=== PATIENT | male | born 1930 | race Caucasian/White ===

== ENCOUNTER 2018-03-05 11:17 | Inpatient (IN) | payer MEDICARE, MEDICAID, OTHER ==
[~2018-03-05] VITALS: Ht 172.7 cm; Wt 78.0 kg
[2018-03-05] MEDS ORDERED: normal saline 1000ml 1,000 ML IV ONE ×2 (11:27→12:32)
[2018-03-05] MEDS ORDERED: morphine 4 MG/ML inj SYRINge IV PRN ×2 (11:30→14:00)
[2018-03-05 11:59] LABS: BASOPHILS % (AUTO) 0.1 % (0-1); EOSINOPHILS % (AUTO) 0 % (0-6); HEMATOCRIT 42.8 % (42.0-52.0); HEMOGLOBIN 14.4 g/dl (14.0-17.9); LYMPHOCYTES # (AUTO) 0.8 X10'3 (1.1-4.8); LYMPHOCYTES % (AUTO) 7.1 % (21-51); MEAN CORPUSCULAR HGB CONC 33.7 % (33.0-36.5); MEAN CORPUSCULAR VOLUME 83.1 FL (78-98); MEAN PLATELET VOLUME 7.2 FL (7.4-10.4); MONOCYTES # (AUTO) 0.3 X10'3 (0-0.9); MONOCYTES % (AUTO) 2.8 % (2-12); NEUTROPHILS # (AUTO) 10.5 X10'3 (1.8-7.7); PLATELET COUNT 305 X10'3 (140-440); RED BLOOD COUNT 5.15 X10'6 (4.70-6.10); RED CELL DISTRIBUTION WIDTH 15.2 % (11.5-14.5); WHITE BLOOD COUNT 11.7 X10'3 (4.5-11.0)
[2018-03-05 12:04] LABS: CLARITY,URINE CLOUDY (Clear); COLOR,URINE YELLOW (Yellow); GLUCOSE, URINE >=1000 mg/dl (Neg); KETONES,URINE TRACE mg/dl (Neg); LEUKOCYTE ESTERASE ,URINE SMALL (Neg); NITRITES, URINE POSITIVE (Neg); OCCULT BLOOD,URINE SMALL (Neg); PROTEIN,URINE TRACE mg/dl (Neg); UROBILINOGEN,URINE 0.2 E.U/dL (0.2-1.0)
[2018-03-05 12:05] LABS: UA COLLECTION TYPE STRAIGHT CATH
[2018-03-05 12:09] LABS: PARTIAL THROMBOPLASTIN TIME 26 SECONDS (22-32); PROTHROMBIN TIME 10.6 SECONDS (9.0-12.0)
[2018-03-05 12:10] LABS: BACTERIA,URINE 3+ /HPF (Neg); WBC,URINE TNTC /HPF (0-4)
[2018-03-05 12:11] LABS: MUCUS STRANDS FEW /LPF (Neg); SQUAMOUS EPITHELIAL CELL,UR FEW /LPF (FEW)
[2018-03-05 12:14] LABS: ALANINE AMINOTRANSFERASE 33 U/L (12-78); ALBUMIN 3.2 G/DL (3.4-5.0); ALBUMIN/GLOBULIN RATIO 0.8 (1.1-1.5); ALKALINE PHOSPHATASE 97 IU/L (46-116); ANION GAP 10 (8-16); ASPARTATE AMINO TRANSFERASE 12 U/L (10-37); BILIRUBIN,TOTAL 0.4 MG/DL (0.1-1.0); BLOOD UREA NITROGEN 22 MG/DL (7-18); BUN/CREATININE RATIO 12.6 (5.4-32.0); CALCIUM 8.9 MG/DL (8.5-10.1); CHLORIDE 101 MMOL/L (99-107); CREATININE 1.74 MG/DL (0.60-1.10); GLUCOSE 281 MG/DL (70-104); LIPASE 100 U/L (73-393); MAGNESIUM 1.9 MG/DL (1.5-2.4); POTASSIUM 4.4 MMOL/L (3.5-5.1); SODIUM 138 MMOL/L (135-145); TOTAL CARBON DIOXIDE 27.3 MMOL/L (24-32); TOTAL PROTEIN 7.3 G/DL (6.4-8.2); eGFR 37 ML/MIN
[2018-03-05] MEDS ORDERED: normal saline 1000ML IV soln IVB ONE ×2 (12:35→15:15)
[2018-03-05] MEDS ORDERED: CefTRIAXone 2gm/D5W 50ml 50 ML IV ONE (12:35)
[2018-03-05] MEDS ORDERED: piperacillin/tazo 3.375gm/50ml 50 ML IV ONE (13:10)
[2018-03-05] MEDS: normal saline 1000ml 1,000 ML IV SCH (13:57)
[2018-03-05] MEDS ORDERED: HYDROcodone/acetaminophen 5mg/325mg tablet PO PRN (14:00)
[2018-03-05] MEDS ORDERED: potassium Cl 40MEQ/NS 500ml 500 ML IV PRN ×2 (14:00)
[2018-03-05] MEDS ORDERED: magnesium 4gm in 100ml NS 100 ML IV PRN (14:00)
[2018-03-05] MEDS ORDERED: potassium Cl 20 mEq SR tablet PO PRN ×2 (14:00)
[2018-03-05] MEDS ORDERED: HYDROcodone/acetaminophen 10/325mg tab PO PRN (14:00)
[2018-03-05] MEDS ORDERED: magnesium 2GM in 50ml NS 50 ML IV PRN (14:00)
[2018-03-05] MEDS ORDERED: bisacodyl 10mg suppository rectal RC PRN (14:00)
[2018-03-05] MEDS ORDERED: magnesium hydroxide 30ml (MOM) UD suspension PO PRN (14:00)
[2018-03-05] MEDS ORDERED: acetaminophen 325mg tablet PO PRN (14:00)
[2018-03-05] MEDS ORDERED: mag hydrox/Alum hydrox/simeth 30ml oral suspension PO PRN (14:00)
[2018-03-05] MEDS ORDERED: magnesium Cl slow-release 64mg tablet PO PRN (14:00)
[2018-03-05] MEDS ORDERED: sincalide inj 1.6 MCG in normal saline 50ml IV soln 50 ML IV ONE (14:05)
[2018-03-05] MEDS ORDERED: MESSAGE TO PHARMACY PO ONE (14:05)
[2018-03-05] MEDS ORDERED: LORazepam 2 mg/ml vial IV PRN (14:05)
[2018-03-05] MEDS ORDERED: glucagon, human recombinant 1mg kit SUBCUT PRN (14:05)
[2018-03-05] MEDS ORDERED: dextrose 50%-water 50ml dispensing syringe IV PRN ×2 (14:05)
[2018-03-05] MEDS ORDERED: dextrose ORAL solution 15 GM/59 ML bottle PO PRN ×2 (14:05)
[2018-03-05] MEDS: metroNIDAZOLE-Flagyl 500mg/NS 100 ML IV SCH (17:47)
[2018-03-05 20:00] VITALS: BP 139/75
[2018-03-05] MEDS: heparin, porcine 5000 units/ml vial SQ SCH (20:00)
[2018-03-05] MEDS: docusate sod 100mg capsule PO SCH (20:00)
[2018-03-06] VITALS (18 sets, daily range): BP systolic 140–175; BP diastolic 67–95
[2018-03-06] MEDS: normal saline 1000ml 1,000 ML IV SCH ×3 (00:36→20:02)
[2018-03-06] MEDS: metroNIDAZOLE-Flagyl 500mg/NS 100 ML IV SCH ×4 (01:51→23:37)
[2018-03-06] MEDS: docusate sod 100mg capsule PO SCH ×2 (07:23→20:00)
[2018-03-06] MEDS: heparin, porcine 5000 units/ml vial SQ SCH ×3 (07:23→20:01)
[2018-03-06] MEDS: K and/or MAG REPLACEMENT MC SCH (08:00)
[2018-03-06] MEDS: CefTRIAXone/D5W-Rocephin 1gm 50 ML IV SCH (08:39)
[2018-03-06 09:44] LABS: BASOPHILS % (AUTO) 0.5 % (0-1); EOSINOPHILS # (AUTO) 0.5 X10'3 (0-0.9); EOSINOPHILS % (AUTO) 4.4 % (0-6); HEMATOCRIT 37.7 % (42.0-52.0); HEMOGLOBIN 12.8 g/dl (14.0-17.9); LYMPHOCYTES # (AUTO) 1.2 X10'3 (1.1-4.8); LYMPHOCYTES % (AUTO) 11.2 % (21-51); MEAN CORPUSCULAR HEMOGLOBIN 28.2 PG (27.0-31.0); MONOCYTES # (AUTO) 0.8 X10'3 (0-0.9); MONOCYTES % (AUTO) 7.5 % (2-12); NEUTROPHILS # (AUTO) 8.2 X10'3 (1.8-7.7); NEUTROPHILS % (AUTO) 76.4 % (42-75); PLATELET COUNT 283 X10'3 (140-440); RED BLOOD COUNT 4.54 X10'6 (4.70-6.10); RED CELL DISTRIBUTION WIDTH 15.4 % (11.5-14.5); WHITE BLOOD COUNT 10.8 X10'3 (4.5-11.0)
[2018-03-06 09:58] LABS: ALANINE AMINOTRANSFERASE 25 U/L (12-78); ALBUMIN 2.7 G/DL (3.4-5.0); ALBUMIN/GLOBULIN RATIO 0.8 (1.1-1.5); ALKALINE PHOSPHATASE 77 IU/L (46-116); ANION GAP 5 (8-16); ASPARTATE AMINO TRANSFERASE 13 U/L (10-37); BILIRUBIN,TOTAL 0.4 MG/DL (0.1-1.0); BLOOD UREA NITROGEN 18 MG/DL (7-18); BUN/CREATININE RATIO 12.6 (5.4-32.0); CALCIUM 8.4 MG/DL (8.5-10.1); CHLORIDE 105 MMOL/L (99-107); CREATININE 1.43 MG/DL (0.60-1.10); GLUCOSE 201 MG/DL (70-104); POTASSIUM 4.4 MMOL/L (3.5-5.1); SODIUM 139 MMOL/L (135-145); TOTAL CARBON DIOXIDE 28.8 MMOL/L (24-32); TOTAL PROTEIN 6.2 G/DL (6.4-8.2); eGFR 47 ML/MIN
[2018-03-06] MEDS ORDERED: ringers solution, lacted 1,000 ML IV ONE (14:58)
[2018-03-06] MEDS ORDERED: ringers solution, lacted 1,000 ML IV SCH (14:58)
[2018-03-06] MEDS ORDERED: ondansetron/PF 4mg/2ml inj IV PRN (15:00)
[2018-03-06] MEDS ORDERED: fentaNYL/PF 50MCG/1 ML 2ML syringe IV PRN ×2 (15:00)
[2018-03-06] MEDS ORDERED: morphine 4 MG/ML inj SYRINge IV PRN ×2 (15:00)
[2018-03-06] MEDS ORDERED: enalaprilat dihydrate 2.5mg/2ml vial IV PRN (15:00)
[2018-03-06] MEDS ORDERED: hydrALAZINE 20mg/ml inj. IV PRN (15:00)
[2018-03-06] MEDS ORDERED: LIDOcaine 1% 30ml preserv. free vial ONE (15:15)
[2018-03-06] MEDS ORDERED: ondansetron/PF 4mg/2ml inj ONE (15:58)
[2018-03-06] MEDS ORDERED: sevoflurane 250ml liquid IH ONE (15:58)
[2018-03-06] MEDS ORDERED: fentaNYL/PF 50MCG/1 ML 2ML syringe ONE (16:17)
[2018-03-06] MEDS ORDERED: rocuronium 10mg/ml inj IV ONE (16:18)
[2018-03-06] MEDS ORDERED: propofol inj 20 ML IV ONE (16:18)
[2018-03-06] MEDS ORDERED: BUPIVAcaine/PF 2.5 mg/ml (0.25%) 30ml vial ONE (16:22)
[2018-03-06] MEDS ORDERED: ePHEDrine 50MG/ML INJ. ONE (16:28)
[2018-03-06] MEDS ORDERED: ceFAZolin 1000mg inj ONE ×2 (16:33)
[2018-03-06] MEDS ORDERED: heparin 1,000unit/ml 10ml vial 0 ML ONE (16:33)
[2018-03-06] MEDS ORDERED: dexamethasone sod phosphate 4mg/ml inj. ONE (16:33)
[2018-03-06] MEDS ORDERED: labetalol 5mg/ml 20ml inj. IV ONE (16:48)
[2018-03-06] MEDS ORDERED: HYDROcodone/acetaminophen 5mg/325mg tablet PO PRN (17:45)
[2018-03-06] MEDS: morphine 4 MG/ML inj SYRINge IV PRN ×2 (20:00→23:51)
[2018-03-06] MEDS: lactobacillus rhamnosus 10,000 MMU CELLS/CAPSULE PO SCH (20:00)
[2018-03-06] MEDS: ondansetron/PF 4mg/2ml inj IV PRN (20:01)
[2018-03-07] VITALS: BP 141/80
[2018-03-07] MEDS: ondansetron/PF 4mg/2ml inj IV PRN ×3 (01:39→20:31)
[2018-03-07 04:10] VITALS: BP 108/64
[2018-03-07 05:26] LABS: BASOPHILS % (AUTO) 0 % (0-1); EOSINOPHILS # (AUTO) 0.2 X10'3 (0-0.9); EOSINOPHILS % (AUTO) 1.4 % (0-6); HEMATOCRIT 40.2 % (42.0-52.0); HEMOGLOBIN 13.5 g/dl (14.0-17.9); LYMPHOCYTES # (AUTO) 0.6 X10'3 (1.1-4.8); LYMPHOCYTES % (AUTO) 3.6 % (21-51); MEAN CORPUSCULAR HGB CONC 33.6 % (33.0-36.5); MEAN CORPUSCULAR VOLUME 83.4 FL (78-98); MEAN PLATELET VOLUME 7.5 FL (7.4-10.4); MONOCYTES # (AUTO) 0.7 X10'3 (0-0.9); MONOCYTES % (AUTO) 4.2 % (2-12); NEUTROPHILS # (AUTO) 15.3 X10'3 (1.8-7.7); NEUTROPHILS % (AUTO) 90.8 % (42-75); PLATELET COUNT 289 X10'3 (140-440); RED BLOOD COUNT 4.81 X10'6 (4.70-6.10); RED CELL DISTRIBUTION WIDTH 15.4 % (11.5-14.5); WHITE BLOOD COUNT 16.9 X10'3 (4.5-11.0)
[2018-03-07 05:47] LABS: ALANINE AMINOTRANSFERASE 47 U/L (12-78); ALBUMIN 2.9 G/DL (3.4-5.0); ALBUMIN/GLOBULIN RATIO 0.7 (1.1-1.5); ALKALINE PHOSPHATASE 81 IU/L (46-116); ANION GAP 16 (8-16); ASPARTATE AMINO TRANSFERASE 50 U/L (10-37); BILIRUBIN,TOTAL 0.4 MG/DL (0.1-1.0); BLOOD UREA NITROGEN 21 MG/DL (7-18); BUN/CREATININE RATIO 13.6 (5.4-32.0); CALCIUM 8.5 MG/DL (8.5-10.1); CHLORIDE 102 MMOL/L (99-107); CREATININE 1.54 MG/DL (0.60-1.10); GLUCOSE 295 MG/DL (70-104); MAGNESIUM 1.6 MG/DL (1.5-2.4); POTASSIUM 4.2 MMOL/L (3.5-5.1); SODIUM 138 MMOL/L (135-145); TOTAL CARBON DIOXIDE 20.3 MMOL/L (24-32); TOTAL PROTEIN 6.8 G/DL (6.4-8.2); eGFR 43 ML/MIN
[2018-03-07 07:00] VITALS: BP 197/101
[2018-03-07] MEDS: morphine 4 MG/ML inj SYRINge IV PRN ×3 (07:09→20:31)
[2018-03-07] MEDS: normal saline 1000ml 1,000 ML IV SCH ×2 (07:14→16:36)
[2018-03-07] MEDS: CefTRIAXone/D5W-Rocephin 1gm 50 ML IV SCH (07:15)
[2018-03-07] MEDS: K and/or MAG REPLACEMENT MC SCH (08:00)
[2018-03-07] MEDS: lactobacillus rhamnosus 10,000 MMU CELLS/CAPSULE PO SCH ×2 (08:00→20:00)
[2018-03-07] MEDS: docusate sod 100mg capsule PO SCH ×2 (08:00→20:00)
[2018-03-07] MEDS: metroNIDAZOLE-Flagyl 500mg/NS 100 ML IV SCH ×3 (08:13→23:52)
[2018-03-07] MEDS: heparin, porcine 5000 units/ml vial SQ SCH ×2 (08:13→20:28)
[2018-03-07] MEDS: insulin Lispro (HumaLOG) vial - multi-dose SQ SCH ×2 (08:17→13:28)
[2018-03-07] MEDS ORDERED: hydrALAZINE 20mg/ml inj. IV ONE (09:00)
[2018-03-07] MEDS: levoFLOXACIN-Levaquin 500mg/D5 100 ML IV SCH (09:39)
[2018-03-07 12:08] VITALS: BP 156/88
[2018-03-07] MEDS: pantoprazole 40 MG vial IV SCH (16:04)
[2018-03-07 18:00] VITALS: BP 123/70
[2018-03-08] VITALS: BP 140/80
[2018-03-08] MEDS: morphine 4 MG/ML inj SYRINge IV PRN ×3 (01:52→22:07)
[2018-03-08] MEDS: normal saline 1000ml 1,000 ML IV SCH ×3 (01:55→22:09)
[2018-03-08 05:52] LABS: BASOPHILS % (AUTO) 0.1 % (0-1); EOSINOPHILS # (AUTO) 0.1 X10'3 (0-0.9); EOSINOPHILS % (AUTO) 0.9 % (0-6); HEMATOCRIT 35.1 % (42.0-52.0); HEMOGLOBIN 11.8 g/dl (14.0-17.9); LYMPHOCYTES # (AUTO) 1.1 X10'3 (1.1-4.8); LYMPHOCYTES % (AUTO) 7.2 % (21-51); MEAN CORPUSCULAR HEMOGLOBIN 27.9 PG (27.0-31.0); MEAN CORPUSCULAR HGB CONC 33.6 % (33.0-36.5); MEAN CORPUSCULAR VOLUME 82.9 FL (78-98); MEAN PLATELET VOLUME 7.4 FL (7.4-10.4); MONOCYTES # (AUTO) 1.4 X10'3 (0-0.9); MONOCYTES % (AUTO) 9.1 % (2-12); NEUTROPHILS # (AUTO) 12.9 X10'3 (1.8-7.7); NEUTROPHILS % (AUTO) 82.7 % (42-75); PLATELET COUNT 286 X10'3 (140-440); RED BLOOD COUNT 4.23 X10'6 (4.70-6.10); RED CELL DISTRIBUTION WIDTH 15.5 % (11.5-14.5); WHITE BLOOD COUNT 15.6 X10'3 (4.5-11.0)
[2018-03-08 06:12] LABS: ALANINE AMINOTRANSFERASE 29 U/L (12-78); ALBUMIN 2.4 G/DL (3.4-5.0); ALBUMIN/GLOBULIN RATIO 0.7 (1.1-1.5); ALKALINE PHOSPHATASE 60 IU/L (46-116); ANION GAP 10 (8-16); ASPARTATE AMINO TRANSFERASE 20 U/L (10-37); BILIRUBIN,TOTAL 0.5 MG/DL (0.1-1.0); BLOOD UREA NITROGEN 24 MG/DL (7-18); CALCIUM 8.3 MG/DL (8.5-10.1); CHLORIDE 108 MMOL/L (99-107); GLUCOSE 184 MG/DL (70-104); MAGNESIUM 1.7 MG/DL (1.5-2.4); SODIUM 142 MMOL/L (135-145); TOTAL CARBON DIOXIDE 23.8 MMOL/L (24-32); TOTAL PROTEIN 5.8 G/DL (6.4-8.2); eGFR 41 ML/MIN
[2018-03-08 08:00] VITALS: BP 141/77
[2018-03-08] MEDS: lactobacillus rhamnosus 10,000 MMU CELLS/CAPSULE PO SCH ×2 (08:00→19:34)
[2018-03-08] MEDS: heparin, porcine 5000 units/ml vial SQ SCH ×2 (08:00→19:34)
[2018-03-08] MEDS: K and/or MAG REPLACEMENT MC SCH (08:00)
[2018-03-08] MEDS: docusate sod 100mg capsule PO SCH ×2 (08:00→19:34)
[2018-03-08] MEDS: levoFLOXACIN-Levaquin 500mg/D5 100 ML IV SCH (09:32)
[2018-03-08] MEDS: pantoprazole 40 MG vial IV SCH (09:32)
[2018-03-08] MEDS: insulin Lispro (HumaLOG) vial - multi-dose SQ SCH ×2 (10:34→13:39)
[2018-03-08 11:00] VITALS: BP 133/88
[2018-03-08] MEDS: metroNIDAZOLE-Flagyl 500mg/NS 100 ML IV SCH ×3 (11:19→23:21)
[2018-03-08 18:00] VITALS: BP 144/66
[2018-03-09] VITALS: BP 131/89
[2018-03-09 05:33] LABS: BASOPHILS % (AUTO) 0.1 % (0-1); EOSINOPHILS # (AUTO) 0.4 X10'3 (0-0.9); EOSINOPHILS % (AUTO) 3.8 % (0-6); HEMATOCRIT 33.8 % (42.0-52.0); HEMOGLOBIN 11.1 g/dl (14.0-17.9); LYMPHOCYTES % (AUTO) 8.7 % (21-51); MEAN CORPUSCULAR HEMOGLOBIN 27.6 PG (27.0-31.0); MEAN CORPUSCULAR HGB CONC 32.9 % (33.0-36.5); MEAN CORPUSCULAR VOLUME 83.8 FL (78-98); MEAN PLATELET VOLUME 7.4 FL (7.4-10.4); MONOCYTES # (AUTO) 1.1 X10'3 (0-0.9); MONOCYTES % (AUTO) 9.9 % (2-12); NEUTROPHILS # (AUTO) 8.8 X10'3 (1.8-7.7); NEUTROPHILS % (AUTO) 77.5 % (42-75); PLATELET COUNT 248 X10'3 (140-440); RED BLOOD COUNT 4.03 X10'6 (4.70-6.10); RED CELL DISTRIBUTION WIDTH 15.5 % (11.5-14.5); WHITE BLOOD COUNT 11.3 X10'3 (4.5-11.0)
[2018-03-09 06:00] LABS: ALANINE AMINOTRANSFERASE 20 U/L (12-78); ALBUMIN 2.2 G/DL (3.4-5.0); ALBUMIN/GLOBULIN RATIO 0.7 (1.1-1.5); ALKALINE PHOSPHATASE 60 IU/L (46-116); ANION GAP 11 (8-16); ASPARTATE AMINO TRANSFERASE 13 U/L (10-37); BILIRUBIN,TOTAL 0.4 MG/DL (0.1-1.0); BLOOD UREA NITROGEN 20 MG/DL (7-18); BUN/CREATININE RATIO 15.5 (5.4-32.0); CALCIUM 7.9 MG/DL (8.5-10.1); CHLORIDE 108 MMOL/L (99-107); CREATININE 1.29 MG/DL (0.60-1.10); GLUCOSE 152 MG/DL (70-104); MAGNESIUM 1.8 MG/DL (1.5-2.4); POTASSIUM 3.6 MMOL/L (3.5-5.1); SODIUM 140 MMOL/L (135-145); TOTAL CARBON DIOXIDE 21.4 MMOL/L (24-32); TOTAL PROTEIN 5.3 G/DL (6.4-8.2); eGFR 53 ML/MIN
[2018-03-09 07:30] VITALS: BP 86/46
[2018-03-09 07:34] VITALS: BP 151/83
[2018-03-09] MEDS: lactobacillus rhamnosus 10,000 MMU CELLS/CAPSULE PO SCH ×2 (08:00→20:00)
[2018-03-09] MEDS: docusate sod 100mg capsule PO SCH ×2 (08:00→20:00)
[2018-03-09] MEDS: K and/or MAG REPLACEMENT MC SCH (08:00)
[2018-03-09] MEDS: pantoprazole 40 MG vial IV SCH (09:23)
[2018-03-09] MEDS: normal saline 1000ml 1,000 ML IV SCH ×2 (09:23→21:44)
[2018-03-09] MEDS: metroNIDAZOLE-Flagyl 500mg/NS 100 ML IV SCH ×2 (09:23→15:48)
[2018-03-09] MEDS: heparin, porcine 5000 units/ml vial SQ SCH ×2 (09:24→19:23)
[2018-03-09] MEDS: insulin Lispro (HumaLOG) vial - multi-dose SQ SCH ×2 (10:28→15:07)
[2018-03-09 11:00] VITALS: BP 144/84
[2018-03-09] MEDS: levoFLOXACIN-Levaquin 500mg/D5 100 ML IV SCH (12:02)
[2018-03-09] MEDS: morphine 4 MG/ML inj SYRINge IV PRN (12:03)
[2018-03-09 20:00] VITALS: BP 163/99
[2018-03-10] VITALS: BP 158/96
[2018-03-10] MEDS ORDERED: metroNIDAZOLE 500mg tablet PO SCH
[2018-03-10] MEDS: metroNIDAZOLE-Flagyl 500mg/NS 100 ML IV SCH ×4 (00:06→23:50)
[2018-03-10] MEDS: morphine 4 MG/ML inj SYRINge IV PRN (02:54)
[2018-03-10] MEDS: normal saline 1000ml 1,000 ML IV SCH ×3 (04:36→20:54)
[2018-03-10 05:26] LABS: BASOPHILS % (AUTO) 0.2 % (0-1); EOSINOPHILS # (AUTO) 0.5 X10'3 (0-0.9); EOSINOPHILS % (AUTO) 4.2 % (0-6); HEMATOCRIT 35.3 % (42.0-52.0); HEMOGLOBIN 11.9 g/dl (14.0-17.9); LYMPHOCYTES # (AUTO) 1.1 X10'3 (1.1-4.8); LYMPHOCYTES % (AUTO) 8.6 % (21-51); MEAN CORPUSCULAR HEMOGLOBIN 27.8 PG (27.0-31.0); MEAN CORPUSCULAR HGB CONC 33.7 % (33.0-36.5); MEAN CORPUSCULAR VOLUME 82.5 FL (78-98); MEAN PLATELET VOLUME 7.3 FL (7.4-10.4); MONOCYTES # (AUTO) 1.1 X10'3 (0-0.9); MONOCYTES % (AUTO) 8.3 % (2-12); NEUTROPHILS % (AUTO) 78.7 % (42-75); PLATELET COUNT 279 X10'3 (140-440); RED BLOOD COUNT 4.28 X10'6 (4.70-6.10); RED CELL DISTRIBUTION WIDTH 15.3 % (11.5-14.5); WHITE BLOOD COUNT 12.8 X10'3 (4.5-11.0)
[2018-03-10 05:42] LABS: ALANINE AMINOTRANSFERASE 17 U/L (12-78); ALBUMIN 2.2 G/DL (3.4-5.0); ALBUMIN/GLOBULIN RATIO 0.7 (1.1-1.5); ALKALINE PHOSPHATASE 55 IU/L (46-116); ANION GAP 11 (8-16); ASPARTATE AMINO TRANSFERASE 12 U/L (10-37); BILIRUBIN,TOTAL 0.5 MG/DL (0.1-1.0); BLOOD UREA NITROGEN 15 MG/DL (7-18); BUN/CREATININE RATIO 12.1 (5.4-32.0); CALCIUM 7.8 MG/DL (8.5-10.1); CHLORIDE 108 MMOL/L (99-107); CREATININE 1.24 MG/DL (0.60-1.10); GLUCOSE 125 MG/DL (70-104); MAGNESIUM 1.7 MG/DL (1.5-2.4); POTASSIUM 3.5 MMOL/L (3.5-5.1); SODIUM 141 MMOL/L (135-145); TOTAL CARBON DIOXIDE 22.5 MMOL/L (24-32); TOTAL PROTEIN 5.3 G/DL (6.4-8.2); eGFR 55 ML/MIN
[2018-03-10 06:58] VITALS: BP 158/94
[2018-03-10] MEDS: pantoprazole 40mg Tablet.DR PO SCH ×2 (07:30→08:18)
[2018-03-10] MEDS: K and/or MAG REPLACEMENT MC SCH (08:00)
[2018-03-10] MEDS: docusate sodium 100mg/10ml UD cup PO SCH ×3 (08:00→20:52)
[2018-03-10] MEDS: lactobacillus rhamnosus 10,000 MMU CELLS/CAPSULE PO SCH ×2 (08:18→20:52)
[2018-03-10] MEDS: heparin, porcine 5000 units/ml vial SQ SCH ×2 (08:22→20:53)
[2018-03-10] MEDS: levoFLOXACIN-Levaquin 500mg/D5 100 ML IV SCH (09:28)
[2018-03-10] MEDS: pantoprazole 40 MG vial IV SCH (09:53)
[2018-03-10] MEDS ORDERED: levoFLOXACIN 500mg tablet PO SCH (11:00)
[2018-03-10 11:54] VITALS: BP 159/95
[2018-03-10] MEDS ORDERED: MAGN400O6 PO (14:19)
[2018-03-10] MEDS ORDERED: CYAN100T PO (14:19)
[2018-03-10] MEDS ORDERED: ALFU10TA PO (14:19)
[2018-03-10] MEDS ORDERED: GLIP5TAB26 PO (14:19)
[2018-03-10] MEDS ORDERED: QUET50TA22 PO (14:19)
[2018-03-10] MEDS ORDERED: ACET-2119 PO (14:19)
[2018-03-10] MEDS ORDERED: DOCU250C4 PO (14:19)
[2018-03-10] MEDS ORDERED: DEXT1DRO6 OP (14:19)
[2018-03-10] MEDS ORDERED: CHOL10002 PO (14:19)
[2018-03-10] MEDS ORDERED: FOLI1TAB16 PO (14:19)
[2018-03-10] MEDS ORDERED: FINA5TAB11 PO (14:19)
[2018-03-10] MEDS ORDERED: PANT-47 PO (14:19)
[2018-03-10] MEDS ORDERED: SERT25TA5 PO (14:19)
[2018-03-10] MEDS ORDERED: QUET25TA34 PO (14:19)
[2018-03-10] MEDS ORDERED: polyvinyl alcohol ophthalmic drops 15ml bottle EACHEYE PRN (14:45)
[2018-03-10] MEDS: QUEtiapine 25mg tablet PO SCH ×2 (15:11→20:52)
[2018-03-10] MEDS: insulin Lispro (HumaLOG) vial - multi-dose SQ SCH (19:16)
[2018-03-10 19:30] VITALS: BP 168/94
[2018-03-10] MEDS: tamsulosin 0.4mg capsule PO SCH (20:52)
[2018-03-11 00:30] VITALS: BP 144/65
[2018-03-11 07:00] VITALS: BP 163/68
[2018-03-11] MEDS: K and/or MAG REPLACEMENT MC SCH (07:26)
[2018-03-11] MEDS ORDERED: magnesium hydroxide 30ml (MOM) UD suspension PO ONE (07:30)
[2018-03-11] MEDS: normal saline 1000ml 1,000 ML IV SCH ×2 (07:34→23:42)
[2018-03-11] MEDS: sertraline 25mg tablet PO SCH (07:34)
[2018-03-11] MEDS: QUEtiapine 25mg tablet PO SCH ×3 (07:34→21:25)
[2018-03-11] MEDS: lactobacillus rhamnosus 10,000 MMU CELLS/CAPSULE PO SCH ×2 (07:34→21:25)
[2018-03-11] MEDS: folic acid 1mg tablet PO SCH (07:34)
[2018-03-11] MEDS: metroNIDAZOLE-Flagyl 500mg/NS 100 ML IV SCH ×3 (07:35→23:42)
[2018-03-11] MEDS: heparin, porcine 5000 units/ml vial SQ SCH ×2 (07:35→21:26)
[2018-03-11] MEDS: docusate sodium 100mg/10ml UD cup PO SCH ×3 (07:36→20:00)
[2018-03-11] MEDS: pantoprazole 40 MG vial IV SCH (07:36)
[2018-03-11] MEDS: finasteride 5mg tablet PO SCH (07:42)
[2018-03-11] MEDS: levoFLOXACIN-Levaquin 500mg/D5 100 ML IV SCH (08:39)
[2018-03-11] MEDS: insulin Lispro (HumaLOG) vial - multi-dose SQ SCH ×2 (09:04→15:56)
[2018-03-11 09:10] LABS: BASOPHILS % (AUTO) 0.2 % (0-1); EOSINOPHILS # (AUTO) 0.7 X10'3 (0-0.9); EOSINOPHILS % (AUTO) 6.3 % (0-6); HEMATOCRIT 34.7 % (42.0-52.0); HEMOGLOBIN 11.5 g/dl (14.0-17.9); LYMPHOCYTES # (AUTO) 1.1 X10'3 (1.1-4.8); LYMPHOCYTES % (AUTO) 9.4 % (21-51); MEAN CORPUSCULAR HEMOGLOBIN 27.7 PG (27.0-31.0); MEAN CORPUSCULAR HGB CONC 33.2 % (33.0-36.5); MEAN CORPUSCULAR VOLUME 83.5 FL (78-98); MEAN PLATELET VOLUME 7.1 FL (7.4-10.4); MONOCYTES # (AUTO) 1.1 X10'3 (0-0.9); MONOCYTES % (AUTO) 10.2 % (2-12); NEUTROPHILS # (AUTO) 8.3 X10'3 (1.8-7.7); NEUTROPHILS % (AUTO) 73.9 % (42-75); PLATELET COUNT 253 X10'3 (140-440); RED BLOOD COUNT 4.16 X10'6 (4.70-6.10); RED CELL DISTRIBUTION WIDTH 15.2 % (11.5-14.5); WHITE BLOOD COUNT 11.2 X10'3 (4.5-11.0)
[2018-03-11 09:20] LABS: ANION GAP 10 (8-16); BLOOD UREA NITROGEN 11 MG/DL (7-18); BUN/CREATININE RATIO 9.7 (5.4-32.0); CALCIUM 7.7 MG/DL (8.5-10.1); CHLORIDE 109 MMOL/L (99-107); CREATININE 1.13 MG/DL (0.60-1.10); GLUCOSE 148 MG/DL (70-104); POTASSIUM 3.3 MMOL/L (3.5-5.1); SODIUM 142 MMOL/L (135-145); TOTAL CARBON DIOXIDE 23.3 MMOL/L (24-32); eGFR 62 ML/MIN
[2018-03-11 09:32] LABS: BILIRUBIN,TOTAL 0.4 MG/DL (0.1-1.0)
[2018-03-11 11:08] VITALS: BP 108/69
[2018-03-11] MEDS ORDERED: potassium Cl 20 mEq SR tablet PO PRN ×2 (11:15)
[2018-03-11] MEDS ORDERED: magnesium Cl slow-release 64mg tablet PO PRN (11:15)
[2018-03-11] MEDS ORDERED: potassium Cl 40MEQ/NS 500ml 500 ML IV PRN ×2 (11:15)
[2018-03-11] MEDS ORDERED: magnesium 2GM in 50ml NS 50 ML IV PRN (11:15)
[2018-03-11] MEDS ORDERED: magnesium 4gm in 100ml NS 100 ML IV PRN (11:15)
[2018-03-11 19:30] VITALS: BP 136/80
[2018-03-11] MEDS: tamsulosin 0.4mg capsule PO SCH (21:25)
[2018-03-12 00:40] VITALS: BP 153/79
[2018-03-12 05:25] LABS: BASOPHILS % (AUTO) 0.4 % (0-1); EOSINOPHILS # (AUTO) 0.9 X10'3 (0-0.9); HEMATOCRIT 36.1 % (42.0-52.0); HEMOGLOBIN 12.1 g/dl (14.0-17.9); LYMPHOCYTES # (AUTO) 1.3 X10'3 (1.1-4.8); LYMPHOCYTES % (AUTO) 10.6 % (21-51); MEAN CORPUSCULAR HEMOGLOBIN 27.6 PG (27.0-31.0); MEAN CORPUSCULAR HGB CONC 33.6 % (33.0-36.5); MEAN PLATELET VOLUME 7.1 FL (7.4-10.4); MONOCYTES # (AUTO) 1.1 X10'3 (0-0.9); MONOCYTES % (AUTO) 8.7 % (2-12); NEUTROPHILS # (AUTO) 9.1 X10'3 (1.8-7.7); NEUTROPHILS % (AUTO) 73.3 % (42-75); PLATELET COUNT 267 X10'3 (140-440); RED CELL DISTRIBUTION WIDTH 15.3 % (11.5-14.5); WHITE BLOOD COUNT 12.4 X10'3 (4.5-11.0)
[2018-03-12 05:34] LABS: ALBUMIN 2.1 G/DL (3.4-5.0); ANION GAP 10 (8-16); BLOOD UREA NITROGEN 11 MG/DL (7-18); BUN/CREATININE RATIO 10.1 (5.4-32.0); CALCIUM 8.2 MG/DL (8.5-10.1); CHLORIDE 109 MMOL/L (99-107); CREATININE 1.09 MG/DL (0.60-1.10); GLUCOSE 125 MG/DL (70-104); MAGNESIUM 1.7 MG/DL (1.5-2.4); POTASSIUM 3.5 MMOL/L (3.5-5.1); SODIUM 143 MMOL/L (135-145); TOTAL CARBON DIOXIDE 24.4 MMOL/L (24-32); eGFR 64 ML/MIN
[2018-03-12] MEDS: normal saline 1000ml 1,000 ML IV SCH (06:36)
[2018-03-12 06:44] VITALS: BP 161/93
[2018-03-12] MEDS: metroNIDAZOLE-Flagyl 500mg/NS 100 ML IV SCH (07:39)
[2018-03-12] MEDS: pantoprazole 40 MG vial IV SCH (07:39)
[2018-03-12] MEDS: K and/or MAG REPLACEMENT MC SCH (08:00)
[2018-03-12] MEDS: QUEtiapine 25mg tablet PO SCH ×2 (09:08→13:12)
[2018-03-12] MEDS: folic acid 1mg tablet PO SCH (09:08)
[2018-03-12] MEDS: sertraline 25mg tablet PO SCH (09:08)
[2018-03-12] MEDS: lactobacillus rhamnosus 10,000 MMU CELLS/CAPSULE PO SCH (09:08)
[2018-03-12] MEDS: finasteride 5mg tablet PO SCH (09:08)
[2018-03-12] MEDS: levoFLOXACIN-Levaquin 500mg/D5 100 ML IV SCH (09:08)
[2018-03-12] MEDS: heparin, porcine 5000 units/ml vial SQ SCH (09:09)
[2018-03-12] MEDS: docusate sodium 100mg/10ml UD cup PO SCH (09:09)
[2018-03-12] MEDS: insulin Lispro (HumaLOG) vial - multi-dose SQ SCH (10:05)
[2018-03-12 11:05] VITALS: BP 147/91
== END 2018-03-12 14:15 | DRG 418 ==
LOC: ER 11:18 → ED HOLD 13:19 → EDBEDREQ 19:06 → SUR 3N 19:38
PROVIDERS: ADMIT Internal Medicine; ATTEND Internal Medicine
PROC: CF141ZZ Planar Nuclear Medicine Imaging of Gallbladder using Technetium 99m (Tc-99m) (ICD-10-PCS; 2018-03-05)
PROC: 0FT44ZZ Resection of Gallbladder, Percutaneous Endoscopic Approach (ICD-10-PCS; principal; 2018-03-06 16:03)
DX: K80.00 Calculus of gallbladder with acute cholecystitis without obstruction (principal); N39.0 Urinary tract infection, site not specified; N17.9 Acute kidney failure, unspecified; E11.22 Type 2 diabetes mellitus with diabetic chronic kidney disease; E86.0 Dehydration; N18.9 Chronic kidney disease, unspecified; Z66 Do not resuscitate; F32.9 Major depressive disorder, single episode, unspecified; B96.20 Unspecified Escherichia coli [E. coli] as the cause of diseases classified elsewhere; F03.90 Unspecified dementia, unspecified severity, without behavioral disturbance, psychotic disturbance, mood disturbance, and anxiety; I12.9 Hypertensive chronic kidney disease with stage 1 through stage 4 chronic kidney disease, or unspecified chronic kidney disease; N40.0 Benign prostatic hyperplasia without lower urinary tract symptoms; Z86.73 Personal history of transient ischemic attack (TIA), and cerebral infarction without residual deficits; Z91.013 Allergy to seafood; Z99.3 Dependence on wheelchair; Z90.49 Acquired absence of other specified parts of digestive tract; Z79.899 Other long term (current) drug therapy
CPT/HCPCS: 36415; 71045; 74018; 74176; 76700; 78226; 80048; 80053; 81001; 82247; 82948; 83036; 83605; 83690; 83735; 84484; 85025; 85610; 85730; 86885; 86900; 86901; 87040; 87077; 87088; 87186; 92616; 93005; 93971; 96361; 96374; 99291; A4357; A6223; A6251; A6266; A6449; A7000; A9537; C9113; J0360; J0690; J0696; J1100; J1644; J1956; J2270; J2405; J2543; J2704; J2805; J3010; J3480; J3490; J7030; J7040; J7120

== ENCOUNTER 2018-03-14 17:00 | Inpatient (IN) | payer MEDICARE, MEDICAID, OTHER ==
[~2018-03-14] VITALS: Ht 182.9 cm; Wt 100.0 kg
[~2018-03-14 17:00] MED LIST: ACET-2119 PO; ALFU10TA PO; CHOL10002 PO; CYAN100T PO; DEXT1DRO6 OP; DOCU250C4 PO; FINA5TAB11 PO; FOLI1TAB16 PO; GLIP5TAB26 PO; MAGN400O6 PO; PANT-47 PO; QUET25TA34 PO; QUET50TA22 PO; SERT25TA5 PO
[2018-03-14 17:54] LABS: BASOPHILS # (AUTO) 0.1 X10'3 (0-0.2); BASOPHILS % (AUTO) 0.4 % (0-1); EOSINOPHILS # (AUTO) 0.6 X10'3 (0-0.9); EOSINOPHILS % (AUTO) 4.4 % (0-6); HEMATOCRIT 35.1 % (42.0-52.0); HEMOGLOBIN 11.6 g/dl (14.0-17.9); LYMPHOCYTES # (AUTO) 1.3 X10'3 (1.1-4.8); LYMPHOCYTES % (AUTO) 9.7 % (21-51); MEAN CORPUSCULAR HEMOGLOBIN 27.5 PG (27.0-31.0); MEAN CORPUSCULAR HGB CONC 33.2 % (33.0-36.5); MEAN CORPUSCULAR VOLUME 82.9 FL (78-98); MEAN PLATELET VOLUME 7.1 FL (7.4-10.4); MONOCYTES # (AUTO) 1.4 X10'3 (0-0.9); MONOCYTES % (AUTO) 10.1 % (2-12); NEUTROPHILS # (AUTO) 10.2 X10'3 (1.8-7.7); NEUTROPHILS % (AUTO) 75.4 % (42-75); PLATELET COUNT 292 X10'3 (140-440); RED BLOOD COUNT 4.24 X10'6 (4.70-6.10); RED CELL DISTRIBUTION WIDTH 15.9 % (11.5-14.5); WHITE BLOOD COUNT 13.6 X10'3 (4.5-11.0)
[2018-03-14 18:02] LABS: INR 1.2 INR; PROTHROMBIN TIME 12.1 SECONDS (9.0-12.0)
[2018-03-14 18:11] LABS: ALANINE AMINOTRANSFERASE 12 U/L (12-78); ALBUMIN 2.1 G/DL (3.4-5.0); ALBUMIN/GLOBULIN RATIO 0.6 (1.1-1.5); ALKALINE PHOSPHATASE 59 IU/L (46-116); ANION GAP 6 (8-16); ASPARTATE AMINO TRANSFERASE 18 U/L (10-37); BILIRUBIN,TOTAL 0.2 MG/DL (0.1-1.0); BLOOD UREA NITROGEN 8 MG/DL (7-18); BUN/CREATININE RATIO 6.3 (5.4-32.0); CALCIUM 8.2 MG/DL (8.5-10.1); CHLORIDE 109 MMOL/L (99-107); CREATININE 1.27 MG/DL (0.60-1.10); GLUCOSE 172 MG/DL (70-104); POTASSIUM 3.2 MMOL/L (3.5-5.1); SODIUM 145 MMOL/L (135-145); TOTAL CARBON DIOXIDE 29.6 MMOL/L (24-32); TOTAL PROTEIN 5.5 G/DL (6.4-8.2); eGFR 54 ML/MIN
[2018-03-14 19:58] LABS: CLARITY,URINE Cloudy (Clear); COLOR,URINE Yellow (Yellow); GLUCOSE, URINE 250 mg/dl (Neg); KETONES,URINE Trace mg/dl (Neg); LEUKOCYTE ESTERASE ,URINE Negative (Neg); NITRITES, URINE Negative (Neg); OCCULT BLOOD,URINE Moderate (Neg); PROTEIN,URINE 30 mg/dl (Neg)
[2018-03-14 20:11] LABS: UA COLLECTION TYPE FOLEY CATH
[2018-03-14 20:12] LABS: WBC,URINE NONE SEEN /HPF (0-4)
[2018-03-14 20:13] LABS: BACTERIA,URINE FEW /HPF (Neg); CAL OXALATE CRYSTALS 4+ /HPF (NEGATIVE); RBC,URINE 0-2 /HPF (0-2); SQUAMOUS EPITHELIAL CELL,UR FEW /LPF (FEW)
[2018-03-14] MEDS ORDERED: magnesium 2GM in 50ml NS 50 ML IV PRN (22:35)
[2018-03-14] MEDS ORDERED: mag hydrox/Alum hydrox/simeth 30ml oral suspension PO PRN (22:35)
[2018-03-14] MEDS ORDERED: magnesium hydroxide 30ml (MOM) UD suspension PO PRN (22:35)
[2018-03-14] MEDS ORDERED: acetaminophen 325mg tablet PO PRN (22:35)
[2018-03-14] MEDS ORDERED: magnesium 4gm in 100ml NS 100 ML IV PRN (22:35)
[2018-03-14] MEDS ORDERED: magnesium Cl slow-release 64mg tablet PO PRN (22:35)
[2018-03-14] MEDS: K and/or MAG REPLACEMENT MC SCH (22:35)
[2018-03-14] MEDS ORDERED: potassium Cl 20 mEq SR tablet PO PRN ×2 (22:35)
[2018-03-14] MEDS ORDERED: potassium Cl 40MEQ/NS 500ml 500 ML IV PRN ×2 (22:35)
[2018-03-14] MEDS ORDERED: normal saline 500ml IV soln 500 ML IV ONE (22:35)
[2018-03-14] MEDS ORDERED: HYDROmorphone inj. 0.5 MG/0.5 ML DISP.SYRIN IV PRN ×2 (22:35)
[2018-03-14] MEDS ORDERED: acetaminophen 650mg rectal suppository RC PRN (22:35)
[2018-03-14] MEDS ORDERED: ondansetron/PF 4mg/2ml inj IV PRN (22:35)
[2018-03-14] MEDS: normal saline 1000ml 1,000 ML IV SCH ×2 (23:04→23:06)
[2018-03-15 00:30] VITALS: BP 152/85
[2018-03-15] MEDS ORDERED: LORazepam 2 mg/ml vial IV PRN (00:30)
[2018-03-15] MEDS: piperacillin/tazo 3.375gm/50ml 50 ML IV SCH ×3 (00:40→16:21)
[2018-03-15] MEDS ORDERED: potassium Cl 40MEQ/NS 500ml 500 ML IV ONE (02:06)
[2018-03-15 07:00] VITALS: BP 141/66
[2018-03-15] MEDS ORDERED: HYDROmorphone 1 mg/ml syringe IV PRN ×2 (07:10)
[2018-03-15] MEDS: normal saline 1000ml 1,000 ML IV SCH ×2 (07:50→20:52)
[2018-03-15] MEDS: K and/or MAG REPLACEMENT MC SCH (08:00)
[2018-03-15 09:35] LABS: BASOPHILS # (AUTO) 0.1 X10'3 (0-0.2); BASOPHILS % (AUTO) 0.7 % (0-1); EOSINOPHILS # (AUTO) 0.6 X10'3 (0-0.9); EOSINOPHILS % (AUTO) 4.3 % (0-6); HEMATOCRIT 33.4 % (42.0-52.0); HEMOGLOBIN 11.2 g/dl (14.0-17.9); LYMPHOCYTES # (AUTO) 1.1 X10'3 (1.1-4.8); LYMPHOCYTES % (AUTO) 8.9 % (21-51); MEAN CORPUSCULAR HEMOGLOBIN 27.8 PG (27.0-31.0); MEAN CORPUSCULAR HGB CONC 33.5 % (33.0-36.5); MEAN CORPUSCULAR VOLUME 82.9 FL (78-98); MONOCYTES % (AUTO) 7.9 % (2-12); NEUTROPHILS % (AUTO) 78.2 % (42-75); PLATELET COUNT 320 X10'3 (140-440); RED BLOOD COUNT 4.03 X10'6 (4.70-6.10); RED CELL DISTRIBUTION WIDTH 15.7 % (11.5-14.5); WHITE BLOOD COUNT 12.8 X10'3 (4.5-11.0)
[2018-03-15 09:49] LABS: ALANINE AMINOTRANSFERASE 15 U/L (12-78); ALBUMIN 1.5 G/DL (3.4-5.0); ALBUMIN/GLOBULIN RATIO 0.4 (1.1-1.5); ALKALINE PHOSPHATASE 58 IU/L (46-116); ANION GAP 7 (8-16); ASPARTATE AMINO TRANSFERASE 24 U/L (10-37); BILIRUBIN,TOTAL 0.3 MG/DL (0.1-1.0); BLOOD UREA NITROGEN 7 MG/DL (7-18); CALCIUM 6.7 MG/DL (8.5-10.1); CHLORIDE 108 MMOL/L (99-107); CREATININE 1.17 MG/DL (0.60-1.10); GLUCOSE 151 MG/DL (70-104); MAGNESIUM 1.8 MG/DL (1.5-2.4); PHOSPHORUS 2.9 MG/DL (2.3-4.5); POTASSIUM 3.6 MMOL/L (3.5-5.1); SODIUM 142 MMOL/L (135-145); TOTAL PROTEIN 5.2 G/DL (6.4-8.2); eGFR 59 ML/MIN
[2018-03-15 19:16] VITALS: BP 142/87
[2018-03-16] VITALS: BP 136/75
[2018-03-16] MEDS: piperacillin/tazo 3.375gm/50ml 50 ML IV SCH ×2 (00:12→08:01)
[2018-03-16 04:13] LABS: BASOPHILS # (AUTO) 0.1 X10'3 (0-0.2); BASOPHILS % (AUTO) 0.5 % (0-1); EOSINOPHILS # (AUTO) 0.6 X10'3 (0-0.9); EOSINOPHILS % (AUTO) 4.7 % (0-6); HEMATOCRIT 33.9 % (42.0-52.0); HEMOGLOBIN 11.2 g/dl (14.0-17.9); LYMPHOCYTES # (AUTO) 1.1 X10'3 (1.1-4.8); MEAN CORPUSCULAR HEMOGLOBIN 27.5 PG (27.0-31.0); MEAN CORPUSCULAR VOLUME 83.3 FL (78-98); MEAN PLATELET VOLUME 6.8 FL (7.4-10.4); MONOCYTES # (AUTO) 1.1 X10'3 (0-0.9); MONOCYTES % (AUTO) 8.8 % (2-12); NEUTROPHILS # (AUTO) 9.4 X10'3 (1.8-7.7); PLATELET COUNT 337 X10'3 (140-440); RED BLOOD COUNT 4.07 X10'6 (4.70-6.10); RED CELL DISTRIBUTION WIDTH 16.2 % (11.5-14.5); WHITE BLOOD COUNT 12.2 X10'3 (4.5-11.0)
[2018-03-16 04:47] LABS: ALANINE AMINOTRANSFERASE 18 U/L (12-78); ALBUMIN/GLOBULIN RATIO 0.6 (1.1-1.5); ALKALINE PHOSPHATASE 73 IU/L (46-116); ANION GAP 6 (8-16); ASPARTATE AMINO TRANSFERASE 35 U/L (10-37); BILIRUBIN,TOTAL 0.5 MG/DL (0.1-1.0); BLOOD UREA NITROGEN 8 MG/DL (7-18); BUN/CREATININE RATIO 6.6 (5.4-32.0); CALCIUM 8.3 MG/DL (8.5-10.1); CHLORIDE 108 MMOL/L (99-107); CREATININE 1.21 MG/DL (0.60-1.10); GLUCOSE 142 MG/DL (70-104); MAGNESIUM 1.7 MG/DL (1.5-2.4); PHOSPHORUS 3.3 MG/DL (2.3-4.5); POTASSIUM 3.7 MMOL/L (3.5-5.1); SODIUM 143 MMOL/L (135-145); TOTAL CARBON DIOXIDE 28.6 MMOL/L (24-32); TOTAL PROTEIN 5.3 G/DL (6.4-8.2); eGFR 57 ML/MIN
[2018-03-16 07:00] VITALS: BP 140/70
[2018-03-16] MEDS: K and/or MAG REPLACEMENT MC SCH ×2 (07:17→10:20)
[2018-03-16] MEDS: normal saline 1000ml 1,000 ML IV SCH ×2 (08:03→17:27)
[2018-03-16] MEDS ORDERED: magnesium hydroxide 30ml (MOM) UD suspension PO PRN (11:35)
[2018-03-16] MEDS ORDERED: polyvinyl alcohol ophthalmic drops 15ml bottle EACHEYE PRN (11:35)
[2018-03-16] MEDS ORDERED: docusate sod 250mg capsule PO PRN (11:35)
[2018-03-16] MEDS ORDERED: glucagon, human recombinant 1mg kit SUBCUT PRN (11:45)
[2018-03-16] MEDS ORDERED: MESSAGE TO PHARMACY PO ONE (11:45)
[2018-03-16] MEDS ORDERED: insulin Lispro (HumaLOG) vial - multi-dose SQ SCH (11:45)
[2018-03-16] MEDS ORDERED: dextrose 50%-water 50ml dispensing syringe IV PRN ×2 (11:45)
[2018-03-16] MEDS ORDERED: dextrose ORAL solution 15 GM/59 ML bottle PO PRN ×2 (11:45)
[2018-03-16 11:55] VITALS: BP 109/79
[2018-03-16] MEDS: QUEtiapine 25mg tablet PO SCH ×2 (12:29→20:06)
[2018-03-16] MEDS: sertraline 25mg tablet PO SCH (12:29)
[2018-03-16 20:00] VITALS: BP 152/78
[2018-03-16] MEDS: heparin, porcine 5000 units/ml vial SQ SCH (20:08)
[2018-03-16] MEDS: pantoprazole 40mg Tablet.DR PO SCH (20:08)
[2018-03-16] MEDS ORDERED: tamsulosin 0.4mg capsule PO SCH (21:00)
[2018-03-16] MEDS ORDERED: insulin glargine (Lantus) pen - multi-dose SQ SCH (21:00)
[2018-03-17] VITALS: BP 132/61
[2018-03-17] MEDS: normal saline 1000ml 1,000 ML IV SCH (05:09)
[2018-03-17 05:36] LABS: BASOPHILS % (AUTO) 0.3 % (0-1); EOSINOPHILS # (AUTO) 0.4 X10'3 (0-0.9); EOSINOPHILS % (AUTO) 3.9 % (0-6); LYMPHOCYTES # (AUTO) 1.2 X10'3 (1.1-4.8); LYMPHOCYTES % (AUTO) 10.8 % (21-51); MEAN CORPUSCULAR HEMOGLOBIN 27.9 PG (27.0-31.0); MEAN CORPUSCULAR HGB CONC 33.4 % (33.0-36.5); MEAN CORPUSCULAR VOLUME 83.4 FL (78-98); MEAN PLATELET VOLUME 6.9 FL (7.4-10.4); NEUTROPHILS # (AUTO) 8.6 X10'3 (1.8-7.7); PLATELET COUNT 361 X10'3 (140-440); RED BLOOD COUNT 4.32 X10'6 (4.70-6.10); RED CELL DISTRIBUTION WIDTH 15.9 % (11.5-14.5); WHITE BLOOD COUNT 11.4 X10'3 (4.5-11.0)
[2018-03-17 06:04] LABS: ALANINE AMINOTRANSFERASE 26 U/L (12-78); ALBUMIN 2.1 G/DL (3.4-5.0); ALBUMIN/GLOBULIN RATIO 0.6 (1.1-1.5); ALKALINE PHOSPHATASE 79 IU/L (46-116); ANION GAP 8 (8-16); ASPARTATE AMINO TRANSFERASE 32 U/L (10-37); BILIRUBIN,TOTAL 0.4 MG/DL (0.1-1.0); BLOOD UREA NITROGEN 8 MG/DL (7-18); BUN/CREATININE RATIO 7.5 (5.4-32.0); CALCIUM 8.2 MG/DL (8.5-10.1); CHLORIDE 106 MMOL/L (99-107); CREATININE 1.07 MG/DL (0.60-1.10); GLUCOSE 117 MG/DL (70-104); MAGNESIUM 1.7 MG/DL (1.5-2.4); SODIUM 142 MMOL/L (135-145); TOTAL CARBON DIOXIDE 27.7 MMOL/L (24-32); TOTAL PROTEIN 5.6 G/DL (6.4-8.2); eGFR 66 ML/MIN
[2018-03-17 07:05] VITALS: BP 124/77
[2018-03-17] MEDS: QUEtiapine 25mg tablet PO SCH ×2 (07:54→07:55)
[2018-03-17] MEDS: pantoprazole 40mg Tablet.DR PO SCH (07:55)
[2018-03-17] MEDS: sertraline 25mg tablet PO SCH (07:55)
[2018-03-17] MEDS: heparin, porcine 5000 units/ml vial SQ SCH (07:55)
[2018-03-17] MEDS ORDERED: finasteride 5mg tablet PO SCH (08:00)
[2018-03-17] MEDS ORDERED: folic acid 1mg tablet PO SCH (08:00)
[2018-03-17 11:23] VITALS: BP 134/84
== END 2018-03-17 15:43 | DRG 682 ==
LOC: ER 17:01 → ED HOLD 22:33 → SUR 3N 23:50
PROVIDERS: ADMIT Family Medicine; ATTEND Family Medicine
PROC: 0D9670Z Drainage of Stomach with Drainage Device, Via Natural or Artificial Opening (ICD-10-PCS; principal; 2018-03-14)
DX: N17.9 Acute kidney failure, unspecified (principal); E43 Unspecified severe protein-calorie malnutrition; K56.7 Ileus, unspecified; E11.22 Type 2 diabetes mellitus with diabetic chronic kidney disease; D64.9 Anemia, unspecified; G30.9 Alzheimer's disease, unspecified; F02.80 Dementia in other diseases classified elsewhere, unspecified severity, without behavioral disturbance, psychotic disturbance, mood disturbance, and anxiety; D72.829 Elevated white blood cell count, unspecified; E87.6 Hypokalemia; I10 Essential (primary) hypertension; Z66 Do not resuscitate; I25.10 Atherosclerotic heart disease of native coronary artery without angina pectoris; F32.9 Major depressive disorder, single episode, unspecified; K21.9 Gastro-esophageal reflux disease without esophagitis; N40.0 Benign prostatic hyperplasia without lower urinary tract symptoms; Z86.73 Personal history of transient ischemic attack (TIA), and cerebral infarction without residual deficits; Z91.013 Allergy to seafood; Z90.49 Acquired absence of other specified parts of digestive tract; Z68.29 Body mass index [BMI] 29.0-29.9, adult; Y92.89 Other specified places as the place of occurrence of the external cause; Z79.899 Other long term (current) drug therapy; N18.9 Chronic kidney disease, unspecified
CPT/HCPCS: 36415; 74176; 80053; 81001; 82948; 83735; 84100; 85025; 85610; 87070; 93005; A6258; J1170; J1644; J1815; J2060; J2543; J3480; J7030

== ENCOUNTER 2018-07-16 03:34 | Emergency (ER) | payer MEDICARE, MEDICAID, OTHER ==
[~2018-07-16] VITALS: Ht 167.6 cm; Wt 80.0 kg
[2018-07-16] MEDS ORDERED: ondansetron/PF 4mg/2ml inj IV ONE (03:45)
[2018-07-16] MEDS ORDERED: normal saline 1000ML IV soln IVB ONE (03:45)
[2018-07-16] MEDS ORDERED: morphine 4 MG/ML inj SYRINge IV PRN (03:45)
[2018-07-16 03:58] LABS: BASOPHILS % (AUTO) 0.1 % (0-1); EOSINOPHILS # (AUTO) 0.7 X10'3 (0-0.9); EOSINOPHILS % (AUTO) 5.8 % (0-6); HEMATOCRIT 39.3 % (42.0-52.0); LYMPHOCYTES # (AUTO) 1.1 X10'3 (1.1-4.8); LYMPHOCYTES % (AUTO) 8.9 % (21-51); MEAN CORPUSCULAR HEMOGLOBIN 27.2 PG (27.0-31.0); MEAN CORPUSCULAR VOLUME 82.6 FL (78-98); MEAN PLATELET VOLUME 6.9 FL (7.4-10.4); MONOCYTES # (AUTO) 0.9 X10'3 (0-0.9); MONOCYTES % (AUTO) 7.7 % (2-12); NEUTROPHILS # (AUTO) 9.3 X10'3 (1.8-7.7); NEUTROPHILS % (AUTO) 77.5 % (42-75); PLATELET COUNT 372 X10'3 (140-440); RED BLOOD COUNT 4.76 X10'6 (4.70-6.10); RED CELL DISTRIBUTION WIDTH 14.9 % (11.5-14.5); WHITE BLOOD COUNT 12.1 X10'3 (4.5-11.0)
[2018-07-16 04:00] LABS: CLARITY,URINE SLIGHTLY CLOUDY (Clear); COLOR,URINE YELLOW (Yellow); GLUCOSE, URINE NEGATIVE (Neg); KETONES,URINE NEGATIVE (Neg); LEUKOCYTE ESTERASE ,URINE LARGE (Neg); NITRITES, URINE POSITIVE (Neg); OCCULT BLOOD,URINE SMALL (Neg); PH,URINE 6.5 (4.8-8.0); PROTEIN,URINE TRACE mg/dl (Neg); UROBILINOGEN,URINE 0.2 E.U/dL (0.2-1.0)
[2018-07-16 04:01] LABS: UA COLLECTION TYPE FOLEY CATH
[2018-07-16 04:07] LABS: BACTERIA,URINE 3+ /HPF (Neg); SQUAMOUS EPITHELIAL CELL,UR NONE SEEN /LPF (FEW); WBC,URINE TNTC /HPF (0-4)
[2018-07-16] MEDS ORDERED: SIME80TA61 PO (04:07)
[2018-07-16 04:14] LABS: ALANINE AMINOTRANSFERASE 129 U/L (12-78); ALBUMIN 3.1 G/DL (3.4-5.0); ALBUMIN/GLOBULIN RATIO 0.8 (1.1-1.5); ALKALINE PHOSPHATASE 171 IU/L (46-116); ANION GAP 8 (8-16); ASPARTATE AMINO TRANSFERASE 19 U/L (10-37); BILIRUBIN,TOTAL 0.4 MG/DL (0.1-1.0); BLOOD UREA NITROGEN 23 MG/DL (7-18); BUN/CREATININE RATIO 14.5 (5.4-32.0); CALCIUM 9.6 MG/DL (8.5-10.1); CHLORIDE 100 MMOL/L (99-107); CREATININE 1.59 MG/DL (0.60-1.10); GLUCOSE 222 MG/DL (70-104); LIPASE 119 U/L (73-393); POTASSIUM 4.3 MMOL/L (3.5-5.1); SODIUM 138 MMOL/L (135-145); TOTAL CARBON DIOXIDE 29.6 MMOL/L (24-32); TOTAL PROTEIN 7.1 G/DL (6.4-8.2); eGFR 41 ML/MIN
[2018-07-16] MEDS ORDERED: CefTRIAXone 2gm/D5W 50ml 50 ML IV ONE (04:30)
[2018-07-16 09:39] VITALS: BP 125/55
== END 2018-07-16 10:15 | disposition home or self-care (01) ==
LOC: ER 03:35
DX: K46.9 Unspecified abdominal hernia without obstruction or gangrene (principal); R10.9 Unspecified abdominal pain; F03.90 Unspecified dementia, unspecified severity, without behavioral disturbance, psychotic disturbance, mood disturbance, and anxiety; K21.9 Gastro-esophageal reflux disease without esophagitis; I12.9 Hypertensive chronic kidney disease with stage 1 through stage 4 chronic kidney disease, or unspecified chronic kidney disease; E11.22 Type 2 diabetes mellitus with diabetic chronic kidney disease; N18.9 Chronic kidney disease, unspecified; Z86.73 Personal history of transient ischemic attack (TIA), and cerebral infarction without residual deficits; Z90.49 Acquired absence of other specified parts of digestive tract; Z98.890 Other specified postprocedural states; Z91.013 Allergy to seafood; Z79.899 Other long term (current) drug therapy
CPT/HCPCS: 36415; 71045; 74176; 80053; 81001; 82948; 83605; 83690; 85025; 87040; 87077; 87088; 87186; 93005; 96365; 96375; 99285; J0696; J2270; J2405; P9612

== ENCOUNTER 2018-09-19 10:23 | Inpatient (IN) | payer MEDICARE, MEDICAID, OTHER ==
[~2018-09-19] VITALS: Ht 172.7 cm; Wt 72.0 kg
[~2018-09-19 10:23] MED LIST changes: +SIME80TA61 PO
[2018-09-19] MEDS ORDERED: albuterol 2.5 MG/3 ML nebule NEB ONE (10:35)
[2018-09-19] MEDS ORDERED: dexamethasone sod phosphate 10mg/ml inj IV STA (10:39)
[2018-09-19] MEDS ORDERED: metroNIDAZOLE-Flagyl 500mg/NS 100 ML IV STA (11:07)
[2018-09-19] MEDS ORDERED: normal saline 1000ML IV soln IV ONE (11:10)
[2018-09-19] MEDS ORDERED: piperacillin/tazo 3.375gm/50ml 50 ML IV ONE (11:10)
[2018-09-19] MEDS ORDERED: vancomycin/NS 1 GM ADD-VANTAGE 250 ML IV ONE (11:10)
[2018-09-19 11:24] LABS: BASOPHILS % (AUTO) 0 % (0-1); EOSINOPHILS # (AUTO) 0.2 X10'3 (0-0.9); HEMATOCRIT 44.2 % (42.0-52.0); HEMOGLOBIN 13.8 g/dl (14.0-17.9); LYMPHOCYTES # (AUTO) 1.6 X10'3 (1.1-4.8); LYMPHOCYTES % (AUTO) 8.6 % (21-51); MEAN CORPUSCULAR HEMOGLOBIN 26.6 PG (27.0-31.0); MEAN CORPUSCULAR HGB CONC 31.3 % (33.0-36.5); MEAN CORPUSCULAR VOLUME 84.8 FL (78-98); MEAN PLATELET VOLUME 8.6 FL (7.4-10.4); MONOCYTES # (AUTO) 0.8 X10'3 (0-0.9); MONOCYTES % (AUTO) 4.3 % (2-12); NEUTROPHILS # (AUTO) 15.9 X10'3 (1.8-7.7); NEUTROPHILS % (AUTO) 86.1 % (42-75); PLATELET COUNT 310 X10'3 (140-440); RED BLOOD COUNT 5.21 X10'6 (4.70-6.10); RED CELL DISTRIBUTION WIDTH 18.5 % (11.5-14.5); WHITE BLOOD COUNT 18.5 X10'3 (4.5-11.0)
[2018-09-19 12:04] LABS: INR 1.1 INR; PROTHROMBIN TIME 11.2 SECONDS (9.0-12.0)
[2018-09-19 12:05] LABS: PARTIAL THROMBOPLASTIN TIME 21 SECONDS (22-32)
[2018-09-19 12:19] LABS: CLARITY,URINE CLEAR (Clear); COLOR,URINE YELLOW (Yellow); GLUCOSE, URINE 250 mg/dl (Neg); KETONES,URINE TRACE mg/dl (Neg); LEUKOCYTE ESTERASE ,URINE SMALL (Neg); NITRITES, URINE NEGATIVE (Neg); OCCULT BLOOD,URINE LARGE (Neg); PH,URINE 5.5 (4.8-8.0); PROTEIN,URINE 100 mg/dl (Neg); UROBILINOGEN,URINE 0.2 E.U/dL (0.2-1.0)
[2018-09-19 12:20] LABS: UA COLLECTION TYPE FOLEY CATH
[2018-09-19 12:30] LABS: BACTERIA,URINE NONE SEEN /HPF (Neg); MUCUS STRANDS NONE SEEN /LPF (Neg); SQUAMOUS EPITHELIAL CELL,UR NONE SEEN /LPF (FEW); WBC,URINE 30-50 /HPF (0-4)
[2018-09-19 13:17] LABS: ALANINE AMINOTRANSFERASE 18 U/L (12-78); ALBUMIN 2.4 G/DL (3.4-5.0); ALBUMIN/GLOBULIN RATIO 0.6 (1.1-1.5); ALKALINE PHOSPHATASE 93 IU/L (46-116); ANION GAP 13 (8-16); ASPARTATE AMINO TRANSFERASE 16 U/L (10-37); BILIRUBIN,TOTAL 0.3 MG/DL (0.1-1.0); BLOOD UREA NITROGEN 63 MG/DL (7-18); BUN/CREATININE RATIO 21.7 (5.4-32.0); CALCIUM 8.2 MG/DL (8.5-10.1); CHLORIDE 121 MMOL/L (99-107); GLUCOSE 364 MG/DL (70-104); POTASSIUM 4.3 MMOL/L (3.5-5.1); TOTAL CARBON DIOXIDE 28.8 MMOL/L (24-32); TOTAL PROTEIN 6.3 G/DL (6.4-8.2); eGFR 21 ML/MIN
[2018-09-19 13:19] LABS: SODIUM 163 MMOL/L (135-145)
[2018-09-19] MEDS ORDERED: dextrose 5%-water 1,000 ML IV SCH (13:55)
[2018-09-19 14:01] LABS: ABG BASE EXCESS 0.3 mmol/L (-2.0-3.0); ABG HCO3 25.2 mmol/L (22.0-26.0); ABG OXYGEN SATURATION 95.8 % (95-98); ABG PCO2 (T) 41.6 mmHg (35.0-48.0); ABG PO2 (T) 86.5 mmHg (83-108); ALLEN'S TEST Positive; FCOHb 0.8 % (0.5-1.5); FLOW 3 L/min; FMetHb 0.3 % (0.3-1.12); FO2Hb 94.7 % (94-100)
[2018-09-19] MEDS ORDERED: potassium Cl 40MEQ/NS 500ml 500 ML IV PRN ×2 (14:10)
[2018-09-19] MEDS ORDERED: magnesium hydroxide 30ml (MOM) UD suspension PO PRN (14:10)
[2018-09-19] MEDS ORDERED: mag hydrox/Alum hydrox/simeth 30ml oral suspension PO PRN (14:10)
[2018-09-19] MEDS ORDERED: magnesium 4gm in 100ml NS 100 ML IV PRN (14:10)
[2018-09-19] MEDS ORDERED: acetaminophen 325mg tablet PO PRN (14:10)
[2018-09-19] MEDS ORDERED: potassium Cl 20 mEq SR tablet PO PRN ×2 (14:10)
[2018-09-19] MEDS ORDERED: ondansetron/PF 4mg/2ml inj IV PRN (14:10)
[2018-09-19] MEDS ORDERED: magnesium Cl slow-release 64mg tablet PO PRN (14:10)
[2018-09-19] MEDS ORDERED: SENN-161 PO (14:16)
[2018-09-19] MEDS ORDERED: FURO-150 PO (14:16)
[2018-09-19] MEDS: piperacillin/tazo 3.375gm/50ml 50 ML IV SCH ×2 (14:25→21:08)
[2018-09-19] MEDS ORDERED: MESSAGE TO PHARMACY PO ONE (14:30)
[2018-09-19] MEDS ORDERED: glucagon, human recombinant 1mg kit SUBCUT PRN (14:30)
[2018-09-19] MEDS ORDERED: dextrose ORAL solution 15 GM/59 ML bottle PO PRN ×2 (14:30)
[2018-09-19] MEDS ORDERED: dextrose 50%-water 50ml dispensing syringe IV PRN ×2 (14:30)
[2018-09-19 14:43] LABS: ALBUMIN 2.6 G/DL (3.4-5.0); ANION GAP 15 (8-16); BLOOD UREA NITROGEN 63 MG/DL (7-18); CALCIUM 8.6 MG/DL (8.5-10.1); CHLORIDE 119 MMOL/L (99-107); CREATININE 2.87 MG/DL (0.60-1.10); GLUCOSE 371 MG/DL (70-104); POTASSIUM 4.1 MMOL/L (3.5-5.1); eGFR 21 ML/MIN
[2018-09-19 14:49] LABS: SODIUM 159 MMOL/L (135-145)
[2018-09-19 16:00] VITALS: BP 110/64
[2018-09-19 17:03] LABS: ALBUMIN 2.5 G/DL (3.4-5.0); ANION GAP 15 (8-16); BLOOD UREA NITROGEN 64 MG/DL (7-18); BUN/CREATININE RATIO 23.4 (5.4-32.0); CALCIUM 8.4 MG/DL (8.5-10.1); CHLORIDE 119 MMOL/L (99-107); CREATININE 2.73 MG/DL (0.60-1.10); GLUCOSE 416 MG/DL (70-104); POTASSIUM 4.3 MMOL/L (3.5-5.1); TOTAL CARBON DIOXIDE 24.9 MMOL/L (24-32); eGFR 22 ML/MIN
[2018-09-19 17:05] LABS: SODIUM 159 MMOL/L (135-145)
[2018-09-19] MEDS: insulin Lispro (HumaLOG) vial - multi-dose SQ SCH ×2 (17:41→21:05)
[2018-09-19 19:00] VITALS: BP 111/57
[2018-09-19] MEDS ORDERED: sodium chloride 0.45% 1,000 ML IV SCH (19:35)
[2018-09-19] MEDS: heparin, porcine 5000 units/ml vial SQ SCH (20:58)
[2018-09-19] MEDS: insulin glargine (Lantus) pen - multi-dose SQ SCH (21:08)
[2018-09-19 23:00] VITALS: BP 103/60
[2018-09-20] MEDS: potassium cl 20mEq in 1/2 NS 1,000 ML IV SCH ×3 (02:00→15:33)
[2018-09-20] MEDS: piperacillin/tazo 3.375gm/50ml 50 ML IV SCH ×4 (02:00→20:24)
[2018-09-20 03:00] VITALS: BP 104/50
[2018-09-20] MEDS: polyvinyl alcohol ophthalmic drops 15ml bottle EACHEYE PRN ×2 (04:47→20:24)
[2018-09-20 05:06] LABS: BASOPHILS % (AUTO) 0.1 % (0-1); EOSINOPHILS # (AUTO) 0.3 X10'3 (0-0.9); EOSINOPHILS % (AUTO) 1.6 % (0-6); HEMATOCRIT 38.8 % (42.0-52.0); HEMOGLOBIN 12.2 g/dl (14.0-17.9); LYMPHOCYTES % (AUTO) 4.4 % (21-51); MEAN CORPUSCULAR HEMOGLOBIN 26.7 PG (27.0-31.0); MEAN CORPUSCULAR HGB CONC 31.5 % (33.0-36.5); MEAN CORPUSCULAR VOLUME 84.9 FL (78-98); MEAN PLATELET VOLUME 8.5 FL (7.4-10.4); MONOCYTES # (AUTO) 0.9 X10'3 (0-0.9); NEUTROPHILS # (AUTO) 19.8 X10'3 (1.8-7.7); NEUTROPHILS % (AUTO) 89.9 % (42-75); PLATELET COUNT 256 X10'3 (140-440); RED BLOOD COUNT 4.58 X10'6 (4.70-6.10); RED CELL DISTRIBUTION WIDTH 18.4 % (11.5-14.5)
[2018-09-20 05:31] LABS: ALANINE AMINOTRANSFERASE 16 U/L (12-78); ALBUMIN 2.3 G/DL (3.4-5.0); ALBUMIN/GLOBULIN RATIO 0.6 (1.1-1.5); ALKALINE PHOSPHATASE 84 IU/L (46-116); ANION GAP 12 (8-16); ASPARTATE AMINO TRANSFERASE 11 U/L (10-37); BILIRUBIN,TOTAL 0.5 MG/DL (0.1-1.0); BLOOD UREA NITROGEN 54 MG/DL (7-18); BUN/CREATININE RATIO 21.1 (5.4-32.0); CALCIUM 8.7 MG/DL (8.5-10.1); CHLORIDE 121 MMOL/L (99-107); CREATININE 2.56 MG/DL (0.60-1.10); GLUCOSE 350 MG/DL (70-104); MAGNESIUM 2.4 MG/DL (1.5-2.4); POTASSIUM 3.7 MMOL/L (3.5-5.1); TOTAL CARBON DIOXIDE 27.2 MMOL/L (24-32); TOTAL PROTEIN 6.2 G/DL (6.4-8.2); eGFR 24 ML/MIN
[2018-09-20 06:11] LABS: SODIUM 160 MMOL/L (135-145)
[2018-09-20 07:00] VITALS: BP 118/95
[2018-09-20] MEDS: K and/or MAG REPLACEMENT MC SCH (08:00)
[2018-09-20] MEDS: heparin, porcine 5000 units/ml vial SQ SCH ×2 (09:13→20:24)
[2018-09-20] MEDS ORDERED: dextrose 5%-water 1,000 ML IV SCH (09:20)
[2018-09-20] MEDS ORDERED: sodium chloride 0.45% 1,000 ML IV SCH (09:30)
[2018-09-20 11:30] VITALS: BP 132/62
[2018-09-20 12:00] LABS: ALBUMIN 2.4 G/DL (3.4-5.0); ANION GAP 14 (8-16); BLOOD UREA NITROGEN 54 MG/DL (7-18); BUN/CREATININE RATIO 21.9 (5.4-32.0); CALCIUM 8.8 MG/DL (8.5-10.1); CHLORIDE 120 MMOL/L (99-107); CREATININE 2.47 MG/DL (0.60-1.10); GLUCOSE 335 MG/DL (70-104); TOTAL CARBON DIOXIDE 25.5 MMOL/L (24-32); eGFR 25 ML/MIN
[2018-09-20 12:01] LABS: SODIUM 159 MMOL/L (135-145)
[2018-09-20] MEDS: insulin Lispro (HumaLOG) vial - multi-dose SQ SCH (13:44)
[2018-09-20 15:00] VITALS: BP 109/64
[2018-09-20 18:17] LABS: ALBUMIN 2.3 G/DL (3.4-5.0); ANION GAP 13 (8-16); BLOOD UREA NITROGEN 50 MG/DL (7-18); BUN/CREATININE RATIO 22.1 (5.4-32.0); CALCIUM 8.8 MG/DL (8.5-10.1); CHLORIDE 119 MMOL/L (99-107); CREATININE 2.26 MG/DL (0.60-1.10); GLUCOSE 252 MG/DL (70-104); POTASSIUM 3.7 MMOL/L (3.5-5.1); TOTAL CARBON DIOXIDE 26.1 MMOL/L (24-32); eGFR 28 ML/MIN
[2018-09-20 18:21] LABS: SODIUM 158 MMOL/L (135-145)
[2018-09-20 19:00] VITALS: BP 113/72
[2018-09-20] MEDS: insulin glargine (Lantus) pen - multi-dose SQ SCH (20:44)
[2018-09-20 23:00] VITALS: BP 119/65
[2018-09-21] MEDS: piperacillin/tazo 3.375gm/50ml 50 ML IV SCH ×2 (02:00→09:37)
[2018-09-21] MEDS: potassium cl 20mEq in 1/2 NS 1,000 ML IV SCH ×2 (02:59→09:41)
[2018-09-21 03:00] VITALS: BP 118/84
[2018-09-21 05:33] LABS: ALANINE AMINOTRANSFERASE 14 U/L (12-78); ALBUMIN/GLOBULIN RATIO 0.5 (1.1-1.5); ALKALINE PHOSPHATASE 74 IU/L (46-116); ANION GAP 12 (8-16); ASPARTATE AMINO TRANSFERASE 18 U/L (10-37); BILIRUBIN,TOTAL 0.4 MG/DL (0.1-1.0); BLOOD UREA NITROGEN 44 MG/DL (7-18); BUN/CREATININE RATIO 21.5 (5.4-32.0); CALCIUM 8.3 MG/DL (8.5-10.1); CHLORIDE 120 MMOL/L (99-107); CREATININE 2.05 MG/DL (0.60-1.10); GLUCOSE 226 MG/DL (70-104); MAGNESIUM 2.3 MG/DL (1.5-2.4); POTASSIUM 3.8 MMOL/L (3.5-5.1); TOTAL CARBON DIOXIDE 24.4 MMOL/L (24-32); TOTAL PROTEIN 5.8 G/DL (6.4-8.2); eGFR 31 ML/MIN
[2018-09-21 05:39] LABS: SODIUM 156 MMOL/L (135-145)
[2018-09-21 05:51] LABS: BASOPHILS % (AUTO) 0 % (0-1); EOSINOPHILS # (AUTO) 0.6 X10'3 (0-0.9); EOSINOPHILS % (AUTO) 3.2 % (0-6); HEMATOCRIT 32.8 % (42.0-52.0); HEMOGLOBIN 10.4 g/dl (14.0-17.9); LYMPHOCYTES # (AUTO) 1.1 X10'3 (1.1-4.8); LYMPHOCYTES % (AUTO) 6.3 % (21-51); MEAN CORPUSCULAR HEMOGLOBIN 26.6 PG (27.0-31.0); MEAN CORPUSCULAR HGB CONC 31.6 % (33.0-36.5); MEAN CORPUSCULAR VOLUME 84.1 FL (78-98); MEAN PLATELET VOLUME 8.8 FL (7.4-10.4); MONOCYTES # (AUTO) 0.9 X10'3 (0-0.9); MONOCYTES % (AUTO) 4.9 % (2-12); NEUTROPHILS # (AUTO) 15.5 X10'3 (1.8-7.7); NEUTROPHILS % (AUTO) 85.6 % (42-75); PLATELET COUNT 243 X10'3 (140-440); RED CELL DISTRIBUTION WIDTH 18.4 % (11.5-14.5); WHITE BLOOD COUNT 18.1 X10'3 (4.5-11.0)
[2018-09-21 06:00] VITALS: BP 113/65
[2018-09-21 06:38] LABS: ALBUMIN 1.9 G/DL (3.4-5.0); ANION GAP 14 (8-16); BLOOD UREA NITROGEN 43 MG/DL (7-18); BUN/CREATININE RATIO 21.3 (5.4-32.0); CALCIUM 8.1 MG/DL (8.5-10.1); CHLORIDE 119 MMOL/L (99-107); CREATININE 2.02 MG/DL (0.60-1.10); GLUCOSE 228 MG/DL (70-104); POTASSIUM 3.9 MMOL/L (3.5-5.1); SODIUM 154 MMOL/L (135-145); TOTAL CARBON DIOXIDE 21.3 MMOL/L (24-32); eGFR 31 ML/MIN
[2018-09-21 07:50] LABS: ANISOCYTOSIS 2+; PLATELET ESTIMATE NORMAL; TOTAL CELLS COUNTED 100
[2018-09-21 07:51] LABS: POLYCHROMASIA FEW
[2018-09-21] MEDS: K and/or MAG REPLACEMENT MC SCH (08:00)
[2018-09-21] MEDS: heparin, porcine 5000 units/ml vial SQ SCH (09:38)
[2018-09-21] MEDS: insulin Lispro (HumaLOG) vial - multi-dose SQ SCH (09:45)
[2018-09-21 11:00] VITALS: BP 126/71
[2018-09-21 11:17] LABS: ANION GAP 15 (8-16); BLOOD UREA NITROGEN 42 MG/DL (7-18); BUN/CREATININE RATIO 21.5 (5.4-32.0); CALCIUM 8.4 MG/DL (8.5-10.1); CHLORIDE 118 MMOL/L (99-107); CREATININE 1.95 MG/DL (0.60-1.10); GLUCOSE 235 MG/DL (70-104); POTASSIUM 3.9 MMOL/L (3.5-5.1); SODIUM 153 MMOL/L (135-145); TOTAL CARBON DIOXIDE 20.2 MMOL/L (24-32); eGFR 33 ML/MIN
[2018-09-21 17:14] LABS: ALBUMIN 1.9 G/DL (3.4-5.0); ANION GAP 8 (8-16); BLOOD UREA NITROGEN 39 MG/DL (7-18); BUN/CREATININE RATIO 19.9 (5.4-32.0); CALCIUM 8.6 MG/DL (8.5-10.1); CHLORIDE 115 MMOL/L (99-107); CREATININE 1.96 MG/DL (0.60-1.10); GLUCOSE 207 MG/DL (70-104); POTASSIUM 3.6 MMOL/L (3.5-5.1); SODIUM 145 MMOL/L (135-145); TOTAL CARBON DIOXIDE 21.9 MMOL/L (24-32); eGFR 33 ML/MIN
[2018-09-21 19:00] VITALS: BP 91/54
[2018-09-21] MEDS ORDERED: LORazepam 2 mg/ml vial IV PRN (21:00)
[2018-09-21] MEDS ORDERED: morphine 10mg/0.5ml (conc. morphine) oral syringe PO PRN (21:00)
[2018-09-21] MEDS ORDERED: acetaminophen 325mg tablet PO PRN (21:00)
[2018-09-21] MEDS ORDERED: morphine 10mg/ml inj. IV PRN (21:00)
[2018-09-22 08:00] VITALS: BP 91/54
[2018-09-22] MEDS ORDERED: sennosides/docusate sodium tablet PO SCH (08:00)
[2018-09-22] MEDS ORDERED: docusate sod 100mg capsule PO SCH (08:00)
== END 2018-09-22 12:50 | disposition hospice, home (50) | DRG 871 ==
LOC: ER 10:24 → ED HOLD 14:07 → PCU 3S 15:45
PROVIDERS: ADMIT Internal Medicine; ATTEND Internal Medicine
DX: A41.9 Sepsis, unspecified organism (principal); J69.0 Pneumonitis due to inhalation of food and vomit; G93.41 Metabolic encephalopathy; J96.01 Acute respiratory failure with hypoxia; N39.0 Urinary tract infection, site not specified; N17.9 Acute kidney failure, unspecified; E87.0 Hyperosmolality and hypernatremia; E87.2 Acidosis; E87.1 Hypo-osmolality and hyponatremia; E11.22 Type 2 diabetes mellitus with diabetic chronic kidney disease; F32.9 Major depressive disorder, single episode, unspecified; E86.0 Dehydration; F03.90 Unspecified dementia, unspecified severity, without behavioral disturbance, psychotic disturbance, mood disturbance, and anxiety; I12.9 Hypertensive chronic kidney disease with stage 1 through stage 4 chronic kidney disease, or unspecified chronic kidney disease; K21.9 Gastro-esophageal reflux disease without esophagitis; N18.9 Chronic kidney disease, unspecified; N40.0 Benign prostatic hyperplasia without lower urinary tract symptoms; Z66 Do not resuscitate; Z51.5 Encounter for palliative care; Z90.49 Acquired absence of other specified parts of digestive tract; Z91.013 Allergy to seafood; Z79.899 Other long term (current) drug therapy; Z86.73 Personal history of transient ischemic attack (TIA), and cerebral infarction without residual deficits
CPT/HCPCS: 36415; 36600; 71045; 80048; 80053; 81001; 82803; 82948; 83036; 83605; 83735; 83880; 84145; 85018; 85025; 85610; 85730; 87040; 87077; 87088; 93005; 93306; 94640; 94760; 96365; 96366; 96368; 96375; 99285; G0378; J1100; J1644; J1815; J2543; J3370; J3490; J7070